=== PATIENT | female | born 1985 | race Two or more races ===

== ENCOUNTER 2017-04-11 10:13 | Emergency (ER) | payer SELFPAY ==
[2017-04-11 10:34] VITALS: BP 128/73; PULSE 85; TEMP 98; BMI 31.7
[2017-04-11] MEDS ORDERED: IBUPROFEN 600 MG TABLET (FP) PO ONE ×2 (11:30→11:31)
--- NOTE | 2017-04-11 11:37 | PDOC ---
History of Present Illness - General Chief Complaint: Back Pain Stated Complaint: BACK PAIN Time Seen by Provider: 04/11/17 10:55 History Source: Patient Exam Limitations: No Limitations - History of Present Illness Initial Comments: 04/11/17 11:43 My Chief Complaint: Left shoulder pain and lower back pain History of present illness: Patient is a 32-year-old female with no significant medical history here today due to having mid lower back pain and left posterior shoulder pain since being hit feeling tile and pieces of wood from her mother ceiling on 04/06/2017 per pt. Patient denies loss of consciousness. Patient reports that she continues to have intermittent lower back pain with mid lower back since with no radiation down legs or numbness of legs or any saddle anesthesia or any incontinency. Patient reports that pain is an 8 out of 10 and is relieved by taking ibuprofen last taken last night. Patient also reports having left posterior shoulder pain that is currently a 7 out of 10 and is intermittent since 04/06/2017. Patient also reports that 2 days ago she felt tingling in her left arm while she was driving that lasted a few minutes. Patient denies any neck pain. 04/11/17 18:51 Occurred: reports: other (on 04/06/17) Severity: reports: moderate Pain Location: reports: back (lower back ), lower extremity (left shoulder ) Method of Injury: Yes: direct blow (hit by ceiling tiles and wood per pt. at her mothers home hit in lower back left shoulder) Modifying Factors: improves with: pain medication (ibuprofen ) Loss of Consciousness: no loss of consciousness Past History - Past Medical History Allergies/Adverse Reactions: Allergies Allergy/AdvReac Type Severity Reaction Status Date / Time No Known Allergies Allergy Verified 04/11/17 10:34 Home Medications: Ambulatory Orders NK [No Known Home Medication] 04/11/17 - Psycho/Social/Smoking Cessation Hx Suicidal Ideation: No Smoking History: Never smoked Review of Systems - Review of Systems Able to Perform ROS?: Yes Constitutional: No: Symptoms Reported HEENTM: No: Symptoms Reported Respiratory: No: Symptoms reported Cardiac (ROS): No: Symptoms Reported ABD/GI: No: Symptoms Reported : No: Symptoms Reported Musculoskeletal: Yes: Back Pain (lower back ), Joint Pain (left posterior shoulder). No: Joint Swelling Integumentary: No: Symptoms Reported Neurological: No: Symptoms reported *Physical Exam - Vital Signs Last Vital Signs Temp Pulse Resp BP Pulse Ox 98 F 85 18 128/73 100 04/11/17 10:32 04/11/17 10:32 04/11/17 10:32 04/11/17 10:32 04/11/17 10:32 - Physical Exam General Appearance: Yes: Appropriately Dressed Neck: negative: Tender, Lymphadenopathy (R), Lymphadenopathy (L), Rigidity, Tender lateral, Tender midline Respiratory/Chest: positive: Lungs Clear, Normal Breath Sounds. negative: Chest Tender, Respiratory Distress Cardiovascular: positive: Regular Rhythm, Regular Rate, S1, S2 Musculoskeletal: positive: Normal Inspection, Vertebral Tenderness (mid lumbar ( not step off) ). negative: CVA Tenderness, CVA Tenderness (R), CVA Tenderness ( L), Decreased Range of Motion Extremity: positive: Normal Capillary Refill, Normal Inspection, Normal Range of Motion, Tender (left posterior shoulder) Integumentary: positive: Normal Color Neurologic: positive: Fully Oriented, Alert, Normal Response, Motor Strength 5/5 , Respond to painful stimul, Responsive, Other (negative SLR b/l ). negative: Numbness, Sensory Deficit Deep Tendon Reflexes: Knee (L): 4+, Knee (R): 4+ ED Treatment Course - ADDITIONAL ORDERS Additional order review: Laboratory Results 04/11/17 11:00 Urine HCG, Qual Negative Medical Decision Making - Medical Decision Making 04/11/17 11:47 Patient is a 32-year-old female with no significant medical history here today due to having mid lower back pain and left posterior shoulder pain since being hit feeling tidal and pieces of wood from her mother ceiling on 04/06/2017 per pt. Patient denies loss of consciousness. Patient reports that she continues to have intermittent lower back pain with mid lower back since with no radiation down legs or numbness of legs or any saddle anesthesia or any incontinency. Patient reports that pain is an 8 out of 10 and is relieved by taking ibuprofen last taken last night. Patient also reports having left posterior shoulder pain that is currently a 7 out of 10 and is intermittent since 04/06/2017. Patient also reports that 2 days ago she felt tingling in her left arm while she was driving that lasted a few minutes. Patient denies any neck pain. r/o lumbar/sacral vertebrae injury r/o injury to left shoulder lower back pain left shoulder pain PLAN: ibuprofen 600 mg po now xray left shoulder no gross abnormality noted xray lumbar sacral spine no gross abnormality noted follow up with orthopedist for further evaluation 04/11/17 12:26 04/11/17 18:52 *DC/Admit/Observation/Transfer Diagnosis at time of Disposition: Low back pain Qualifiers: Chronicity: acute Back pain laterality: midline Sciatica presence: without sciatica Qualified Code(s): M54.5 - Low back pain Contusion of shoulder, left Qualifiers: Encounter type: initial encounter Qualified Code(s): S40.012A - Contusion of left shoulder, initial encounter - Discharge Dispostion Disposition: HOME Condition at time of disposition: Stable - Referrals Referrals: Abilio Gupta MD [Staff Physician] - - Patient Instructions Additional Instructions: Follow up with orthopedist as soon as possible for further evaluation Ibuprofen as needed as directed by photographer model for pain Avoid strenuous activities or exercise Return to emergency room if symptoms worsen any numbness of arms or legs Patient voiced understanding of discharge instructions and all questions were answered - Post Discharge Activity Work/School Note: Back to Work
[2017-04-11] MEDS ORDERED: LORATADINE 10 MG TABLET ONE (12:10)
== END 2017-04-11 12:35 | disposition home or self-care (01) ==
LOC: JERFT 10:13
DX: S40.012A Contusion of left shoulder, initial encounter (principal); M54.5 Low back pain; W20.1XXA Struck by object due to collapse of building, initial encounter; Y93.89 Activity, other specified; Y92.098 Other place in other non-institutional residence as the place of occurrence of the external cause
CPT/HCPCS: 72100-TC; 73030-TC-LT; 84703; 99281-25